=== PATIENT | male | born 1955 | race Caucasian/White ===

== ENCOUNTER 2017-06-10 21:39 | Emergency (ER) | payer BC ==
[2017-06-10] MEDS ORDERED: Sodium Chloride 0.9% 1,000 ML IV ONE (21:49)
[2017-06-10] MEDS ORDERED: Ondansetron 4 MG/2 ML SDV IVPUSH ONE (21:50)
--- NOTE | 2017-06-10 21:58 | EDM.PDOC ---
ED HPI GENERAL MEDICAL PROBLEM - General Chief Complaint: Abdominal Pain Stated Complaint: PT WEAK Time Seen by Provider: 06/10/17 21:57 Source of Information: Reports: Patient - History of Present Illness INITIAL COMMENTS - FREE TEXT/NARRATIVE: HISTORY AND PHYSICAL: History of present illness: [Patient presents with mild nonfocal abdominal pain over the last week he is noted to have loose stools over the last several months he is in no acute distress no fever vomiting chills sweats no chest pain shortness breath headache dizziness or palpitation no urine symptoms he's had several loose stools today Last colonoscopy was 20 years prior with negative findings at that time he denies blood or mucus in his stool ] Review of systems: As per history of present illness and below otherwise all systems reviewed and negative. Past medical history: As per history of present illness and as reviewed below otherwise noncontributory. Surgical history: As per history of present illness and as reviewed below otherwise noncontributory. Social history: No reported history of drug or alcohol abuse. Family history: As per history of present illness and as reviewed below otherwise noncontributory. Physical exam: HEENT: Atraumatic, normocephalic, pupils reactive, negative for conjunctival pallor or scleral icterus, mucous membranes moist, throat clear, neck supple, nontender, trachea midline. Lungs: Clear to auscultation, breath sounds equal bilaterally, chest nontender. Heart: S1S2, regular, negative for clicks, rubs, or JVD. Abdomen: Soft, nondistended, nontender. Negative for masses or hepatosplenomegaly. Negative for costovertebral tenderness. Pelvis: Stable nontender. Genitourinary: Deferred. Rectal: Deferred. Extremities: Atraumatic, negative for cords or calf pain. Neurovascular unremarkable. Neuro: Awake, alert, oriented. Cranial nerves II through XII unremarkable. Cerebellum unremarkable. Motor and sensory unremarkable throughout. Exam nonfocal. Diagnostics: [TBC CMP lipase troponin UA Abdomen flat and upright Chest 1 view EKG ] Therapeutics: [ saline bolus Zofran 8 mg IV ] Patient was formerly followed by Dr. singer who is now not with this any longer ordered for the patient over to general surgery for consideration of colonoscopy Impression: [ abdominal pain ] Definitive disposition and diagnosis as appropriate pending reevaluation and review of above. Abdomen Pain Score (Numeric/FACES): 4 - Related Data Allergies Allergy/AdvReac Type Severity Reaction Status Date / Time iodine Allergy Rash Verified 06/10/17 21:53 seafoods Allergy Rash Uncoded 06/10/17 21:53 Home Meds: Home Meds Hydrochlorothiazide/Lisinopril [Lisinopril-HCTZ 20-25 MG] 25 mg PO DAILY [History] Past Medical History Other Musculoskeletal History: right wrist fracture (1970) and left foot fracture (2012) Social & Family History - Tobacco Use Smoking Status *Q: Never Smoker Years of Tobacco use: 20 Used Tobacco, but Quit: Yes Second Hand Smoke Exposure: Yes - Alcohol Use Days Per Week of Alcohol Use: 3 Number of Drinks Per Day: 1 Total Drinks Per Week: 3 - Recreational Drug Use Recreational Drug Use: No Drug Use in Last 12 Months: No ED ROS GENERAL - Review of Systems Review Of Systems: ROS reveals no pertinent complaints other than HPI. ED EXAM, GENERAL - Physical Exam Exam: See Below Course - Vital Signs Last Recorded V/S: Last Vital Signs Temp 98 F 06/10/17 21:55 Pulse 68 06/10/17 21:55 Resp 18 06/10/17 21:55 BP 154/91 H 06/10/17 21:55 Pulse Ox 98 06/10/17 21:55 - Orders/Labs/Meds Orders: Active Orders 24 hr Category Date Time Status EKG Documentation Completion [RC] STAT Care 06/10/17 21:49 Active Abdomen 2V AP Flat Upright [CR] Stat Exams 06/10/17 22:50 Taken Chest 1V Frontal [CR] Stat Exams 06/10/17 21:49 Taken INFLUENZA A+B AG SCREEN [RM] Stat Lab 06/10/17 22:00 Ordered UA W/MICROSCOPIC [URIN] Stat Lab 06/10/17 22:57 Ordered Labs: Laboratory Tests 06/10/17 06/10/17 06/10/17 Range/Units 22:10 22:10 22:57 WBC 8.31 (4.0-11.0) K/uL RBC 5.03 (4.50-5.90) M/uL Hgb 15.1 (13.0-17.0) g/dL Hct 43.6 (38.0-50.0) % MCV 86.7 (80.0-98.0) fL MCH 30.0 (27.0-32.0) pg MCHC 34.6 (31.0-37.0) g/dL RDW Std Deviation 42.7 (28.0-62.0) fl RDW Coeff of Mignon 14 (11.0-15.0) % Plt Count 306 (150-400) K/uL MPV 9.10 (7.40-12.00) fL Neut % (Auto) 59.1 (48.0-80.0) % Lymph % (Auto) 31.4 (16.0-40.0) % [place] % (Auto) 6.7 (0.0-15.0) % Eos % (Auto) 2.4 (0.0-7.0) % Baso % (Auto) 0.4 (0.0-1.5) % Neut # (Auto) 4.9 (1.4-5.7) K/uL Lymph # (Auto) 2.6 H (0.6-2.4) K/uL [place] # (Auto) 0.6 (0.0-0.8) K/uL Eos # (Auto) 0.2 (0.0-0.7) K/uL Baso # (Auto) 0.0 (0.0-0.1) K/uL Nucleated RBC % 0.0 /100WBC Nucleated RBCs # 0 K/uL Sodium 138 (136-148) mmol/L Potassium 3.4 L (3.5-5.1) mmol/L Chloride 105 (98-107) mmol/L Carbon Dioxide 24.4 (21.0-32.0) mmol/L BUN 21 H (7.0-18.0) mg/dL Creatinine 0.8 (0.8-1.3) mg/dL Est Cr Clr Drug Dosing 90.25 mL/min Estimated GFR (MDRD) > 60.0 ml/min Glucose 120 H (74-106) mg/dL Calcium 8.8 (8.5-10.1) mg/dL Total Bilirubin 0.3 (0.2-1.0) mg/dL AST 17 (15-37) IU/L ALT 27 (14-63) IU/L Alkaline Phosphatase 67 (46-116) U/L Troponin I < 0.050 (0.000-0.056) ng/mL Total Protein 7.1 (6.4-8.2) g/dL Albumin 3.9 (3.4-5.0) g/dL Globulin 3.2 (2.0-3.5) g/dL Albumin/Globulin Ratio 1.2 L (1.3-2.8) Lipase 142 (73-393) U/L Urine Color YELLOW Urine Appearance CLEAR Urine pH 6.5 (5.0-8.0) Ur Specific [place] 1.020 (1.001-1.035) Urine Protein NEGATIVE (NEGATIVE) mg/dL Urine Glucose (UA) NEGATIVE (NEGATIVE) mg/dL Urine Ketones NEGATIVE (NEGATIVE) mg/dL Urine Occult Blood TRACE-INTACT (NEGATIVE) Urine Nitrite NEGATIVE (NEGATIVE) Urine Bilirubin NEGATIVE (NEGATIVE) Urine Urobilinogen 0.2 (<2.0) EU/dL Ur Leukocyte Esterase NEGATIVE (NEGATIVE) Urine RBC 0-1 (0-2/HPF) Urine WBC 0-2 (0-5/HPF) Ur Epithelial Cells RARE (NONE-FEW) Urine Bacteria FEW (NEGATIVE) Meds: Medications Discontinued Medications Generic Name Dose Route Start Last Admin Trade Name Osei PRN Reason Stop Dose Admin Sodium Chloride 1,000 mls @ 999 mls/hr 06/10/17 21:49 06/10/17 22:26 Normal Saline IV 06/10/17 22:49 999 mls/hr STAT ONE Administration Ondansetron HCl 8 mg 06/10/17 21:50 06/10/17 22:26 Zofran IVPUSH 06/10/17 21:51 8 mg ONETIME ONE Administration Departure - Departure Time of Disposition: 00:21 Disposition: Home, Self-Care 01 Condition: Good Clinical Impression: Abdominal pain - Discharge Information Referrals: PCP,None [Primary Care Provider] - Forms: ED Department Discharge Additional Instructions: Continue daily medications as directed Return if symptoms persist or worsen or new concerning symptoms develop ER referral to general surgery for consideration of colonoscopy [facility] - General Surgery [address], [address] [place] [address] The following information is given to patients seen in the emergency department who are being discharged to home. This information is to outline your options for follow-up care. We provide all patients seen in our emergency department with a follow-up referral. The need for follow-up, as well as the timing and circumstances, are variable depending upon the specifics of your emergency department visit. If you don't have a primary care physician on staff, we will provide you with a referral. We always advise you to contact your personal physician following an emergency department visit to inform them of the circumstance of the visit and for follow-up with them and/or the need for any referrals to a consulting specialist. The emergency department will also refer you to a specialist when appropriate. This referral assures that you have the opportunity for follow-up care with a specialist. All of these measure are taken in an effort to provide you with optimal care, which includes your follow-up. Under all circumstances we always encourage you to contact your private physician who remains a resource for coordinating your care. When calling for follow-up care, please make the office aware that this follow-up is from your recent emergency room visit. If for any reason you are refused follow-up, please contact the [facility] emergency department at and asked to speak to the emergency department charge nurse. - My Orders Last 24 Hours: My Active Orders 06/10/17 21:49 EKG Documentation Completion [RC] STAT Chest 1V Frontal [CR] Stat 06/10/17 22:00 INFLUENZA A+B AG SCREEN [RM] Stat 06/10/17 22:50 Abdomen 2V AP Flat Upright [CR] Stat 06/10/17 22:57 UA W/MICROSCOPIC [URIN] Stat - Assessment/Plan Last 24 Hours: My Active Orders 06/10/17 21:49 EKG Documentation Completion [RC] STAT Chest 1V Frontal [CR] Stat 06/10/17 22:00 INFLUENZA A+B AG SCREEN [RM] Stat 06/10/17 22:50 Abdomen 2V AP Flat Upright [CR] Stat 06/10/17 22:57 UA W/MICROSCOPIC [URIN] Stat
[2017-06-10 22:46] LABS: CHLORIDE,CL 105 mmol/L (98-107); SODIUM,NA 138 mmol/L (136-148)
[2017-06-11 00:46] VITALS: BP 150/80
--- NOTE | 2017-06-12 13:44 | CR ---
EXAM DATE: 06/10/17 PATIENT'S AGE: 62 Patient: CRISTINA FULLER Facility: [place], [place] Site . Site : 1955 Study: XRay Abdomen [id number]/21/2018 11:31:51 PM Ordering Physician: Georgette Gray Final Report: INDICATION: Abdominal pain TECHNIQUE: Abdomen 2 view. COMPARISON: None FINDINGS: Bowel: Bowel pattern is normal. Colonic fecal retention involving the ascending and transverse colon. Soft tissues: No sign of free air. No sign of soft tissue mass. No suspicious calcifications. Bones: Scoliosis, IMPRESSION: Colonic fecal retention involving the ascending and transverse colon. Dictated by Rock John MD @ 06/10/2017 11:54:36 PM Dictated by: Rock John MD @ 06/10/2017 23:54:43 (Electronic Signature) Report Signed by Proxy. [facility]
--- NOTE | 2017-06-12 14:11 | CR ---
EXAM DATE: 06/10/17 PATIENT'S AGE: 62 Patient: CRISTINA FULLER Facility: [place], [place] Site . Site : 1955 Study: XRay Chest [id number]/21/2018 10:27:42 PM Ordering Physician: Doctor Arriaga Final Report: INDICATION: Chest pain COMPARISON: none TECHNIQUE: Portable AP erect chest performed at 10:14 p.m. FINDINGS: The lungs are clear. There is no evidence of pneumothorax. The heart, mediastinum and pulmonary vessels are of normal size. There is no evidence of pleural fluid. IMPRESSION: Negative chest. Dictated by Fam Morales MD @ Jun 12 2017 1:51PM (Electronic Signature) Report Signed by Proxy. JUS
== END 2017-06-11 00:40 | disposition home or self-care (01) ==
LOC: MW.ED 21:39
DX: R10.9 Unspecified abdominal pain (principal); R19.7 Diarrhea, unspecified; Z91.048 Other nonmedicinal substance allergy status; Z91.013 Allergy to seafood
CPT/HCPCS: 71045; 74019; 80053; 81001; 83690; 84484; 85025; 87804; 93005; 96361; 96374; 99285; J2405; J7040; 99283

== ENCOUNTER 2017-06-15 07:45 | Day surgery (SDC) | payer BC ==
[~2017-06-15 07:45] MED LIST: Lactated Ringers 1,000 ML IV SCH; Sodium Chloride 0.9% 10 ML Syringe FLUSH PRN; Sodium Chloride 0.9% 2.5 ML Syringe FLUSH PRN
[2017-06-15] MEDS ORDERED: Lidocaine 2% 5 ML SDV ONE (09:38)
[2017-06-15] MEDS ORDERED: Propofol 200 MG/20 ML SDV ONE (09:39)
--- NOTE | 2017-06-15 10:19 | PCM.PREANE ---
Preanesthetic Assessment - Anesthesia/Transfusion/Family Hx Anesthesia History: Prior Anesthesia Without Reaction Other Type of Anesthesia Reaction Comment: DENIES ANY PROBLEMS WITH ANESTHESIA Family History of Anesthesia Reaction: No Transfusion History: No Prior Transfusion(s) - Review of Systems General: No Symptoms Pulmonary: No Symptoms Cardiovascular: No Symptoms Neurological: No Symptoms Other: Reports: None - Physical Assessment NPO Status Date: 06/14/17 O2 Sat by Pulse Oximetry: 97 Respiratory Rate: 16 Vital Signs: Last Vital Signs Temp 36.4 C 06/15/17 08:49 Pulse 87 06/15/17 08:49 Resp 16 06/15/17 08:49 BP 136/92 H 06/15/17 08:49 Pulse Ox 97 06/15/17 08:49 Height: 1.73 m Weight: 74.389 kg ASA Class: 2 Mental Status: Alert & Oriented x3 Airway Class: Mallampati = 2 Dentition: Reports: Normal Dentition ROM/Head Extension: Full Lungs: Clear to Auscultation, Normal Respiratory Effort Cardiovascular: Regular Rate, Regular Rhythm - Allergies Allergies/Adverse Reactions: Allergies Allergy/AdvReac Type Severity Reaction Status Date / Time iodine Allergy Rash Verified 06/10/17 21:53 seafoods Allergy Rash Uncoded 06/10/17 21:53 - Anesthesia Plan Pre-Op Medication Ordered: None - Acknowledgements Anesthesia Type Planned: MAC Pt an Appropriate Candidate for the Planned Anesthesia: Yes Alternatives and Risks of Anesthesia Discussed w Pt/Guardian: Yes Pt/Guardian Understands and Agrees with Anesthesia Plan: Yes Additional Comments: PMH: htn, gerd PreAnesthesia Questionnaire HEENT History: Reports: None Other HEENT History: wears glasses Cardiovascular History: Reports: Hypertension Respiratory History: Reports: None Gastrointestinal History: Reports: Chronic Diarrhea, GERD Genitourinary History: Reports: BPH Musculoskeletal History: Reports: Back Pain, Chronic, Fracture, Neck Pain, Chronic Other Musculoskeletal History: hx of fx wrist and foot(no hardware) Neurological History: Reports: None Psychiatric History: Reports: Anxiety, Depression Endocrine/Metabolic History: Reports: None Hematologic History: Reports: None Immunologic History: Reports: None Oncologic (Cancer) History: Reports: None Dermatologic History: Reports: None - Infectious Disease History Infectious Disease History: Reports: Chicken Pox - Past Surgical History HEENT Surgical History: Reports: Adenoidectomy, Tonsillectomy GI Surgical History: Reports: Appendectomy Male Surgical History: Reports: Vasectomy Musculoskeletal Surgical History: Reports: Carpal Tunnel - SUBSTANCE USE Smoking Status *Q: Former Smoker Tobacco Use Within Last Twelve Months: No Second Hand Smoke Exposure: Yes Days Per Week of Alcohol Use: 3 Number of Drinks Per Day: 1 Total Drinks Per Week: 3 Recreational Drug Use History: No - HOME MEDS Home Medications: Home Meds Lisinopril/Hydrochlorothiazide [Lisinopril-Hctz 20-25 mg Tab] 1 tab PO QAM 06/14 [History] - CURRENT (IN HOUSE) MEDS Current Meds: Current Medications Lactated Ringer's (Ringers, Lactated) 1,000 mls @ 125 mls/hr IV ASDIRECTED CECILIA Last Admin: 06/15/17 08:05 Dose: 125 mls/hr Sodium Chloride (Saline Flush) 10 ml FLUSH ASDIRECTED PRN PRN Reason: Keep Vein Open Sodium Chloride (Saline Flush) 2.5 ml FLUSH ASDIRECTED PRN PRN Reason: Keep Vein Open Sodium Chloride (Saline Flush) 10 ml FLUSH ASDIRECTED PRN PRN Reason: Keep Vein Open Sodium Chloride (Saline Flush) 2.5 ml FLUSH ASDIRECTED PRN PRN Reason: Keep Vein Open Discontinued Medications Lidocaine (Xylocaine-Mpf 2%) Confirm Administered Dose 5 ml .ROUTE .STK-MED ONE Stop: 06/15/17 09:39 Propofol (Diprivan 20 Ml) Confirm Administered Dose 400 mg .ROUTE .STK-MED ONE Stop: 06/15/17 09:40
[2017-06-15] MEDS ORDERED: fentaNYL 100 MCG/2 ML SDV ONE (11:45)
[2017-06-15] MEDS ORDERED: Midazolam 1 MG/ML 2 ML SDV ONE (11:45)
[2017-06-15] MEDS ORDERED: Glycopyrrolate 0.2 MG/ML SDV ONE (12:10)
--- NOTE | 2017-06-15 12:47 | PCM.OPNOTE ---
- General Post-Op/Procedure Note Date of Surgery/Procedure: 06/15/17 Operative Procedure(s): Diagnostic EGD and colonoscopy Findings: Moderate sized hiatal hernia with associated esophagitis. Mild gastritis. Duodenitis. Grade 2 internal hemorrhoids Pre Op Diagnosis: Abdominal pain Post-Op Diagnosis: Moderate sized hiatal hernia with associated esophagitis. Mild gastritis. Duodenitis. Grade 2 internal hemorrhoids Anesthesia Technique: [facility] Primary Surgeon: Tosin Mccracken Condition: Good
--- NOTE | 2017-06-15 13:50 | PCM.POSTAN ---
POST ANESTHESIA ASSESSMENT - MENTAL STATUS Mental Status: Alert, Oriented - RESPIRATORY Respiratory Status: Respiratory Rate WNL, Airway Patent, O2 Saturation Stable - CARDIOVASCULAR CV Status: Pulse Rate WNL, Blood Pressure Stable - GASTROINTESTINAL GI Status: No Symptoms - POST OP HYDRATION Hydration Status: Adequate & Stable
--- NOTE | 2017-06-15 13:50 | PCM48HPAN ---
Post Anesthesia Note - EVALUATION WITHIN 48HRS OF ANESTHETIC Vital Signs in Normal Range: Yes Patient Participated in Evaluation: Yes Respiratory Function Stable: Yes Airway Patent: Yes Cardiovascular Function Stable: Yes Hydration Status Stable: Yes Pain Control Satisfactory: Yes Nausea and Vomiting Control Satisfactory: Yes Mental Status Recovered: Yes Resp Rate: 15
[2017-06-15 13:52] VITALS: BP 136/81
--- NOTE | 2017-06-15 15:05 | OR ---
SURGEON: TOSIN MCCRACKEN MD DATE OF PROCEDURE: 06/15/2017 PREOPERATIVE DIAGNOSIS: Abdominal pain. POSTOPERATIVE DIAGNOSES: 1. Esophagitis. 2. Gastritis. 3. Duodenitis. 4. Moderate-sized hiatal hernia. 5. Grade 2 internal hemorrhoids. PROCEDURE PERFORMED: Diagnostic EGD and colonoscopy. ENDOSCOPIST: Tosin Mccracken MD. ANESTHESIA: MAC. INSTRUMENT USED: Olympus endoscope and colonoscope. EXTENT OF EXAM: To the second portion of duodenum, to the cecum. PREPARATION: Good. LIMITATIONS: None. INDICATION FOR EXAMINATION: The patient is a 62-year-old male, who presented to the emergency room this weekend with generalized abdominal pain. The patient and I reviewed his previous labs and his symptoms. The decision was made to perform a diagnostic EGD and colonoscopy. The patient and I discussed the procedure, expected perioperative course, and risks including bleeding, infection, or damage to surrounding structures including perforation. The patient verbalized understanding and wishes to proceed. PROCEDURE IN DETAIL: The patient was brought in to the OR and positioned in the OR cart in the left lateral decubitus position. A time-out was completed verifying the patient's name, age, date of , allergies, and procedure to be performed. A bite block was placed in the patient's mouth and monitored anesthesia care induced. Continuous oxygen was provided via nasal cannula throughout the procedure. After adequate sedation was achieved, a well lubricated endoscope was placed in the patient's mouth and advanced under direct visualization to the second portion of duodenum. This area appeared normal and a photograph was taken. The scope was then fully withdrawn while examining the color, texture, anatomy, and integrity of the mucosa of the upper GI tract. The patient was noted to have some inflammation within the duodenal bulb. Several photographs of this inflammation were taken and a biopsy was taken using a cold biopsy forceps. This biopsy was taken in the area of the maximum amount of inflammation. The scope was then brought into the stomach and a photograph taken of the pylorus, as well as the GE junction. The patient was noted to have a moderate-sized hiatal hernia. The gastric mucosa appeared mildly inflamed along the antrum. Biopsies were taken of the gastric antrum, body, and fundus and sent for H. pylori testing. The scope was then brought into the distal esophagus. The patient was noted to have inflammation along the distal esophagus. The distal esophagus appeared to start at about 40 cm at the teeth. Two biopsies were taken along the esophageal mucosa in the area of maximal inflammation. The biopsy sites were monitored closely and hemostasis was achieved. The remainder of the esophageal mucosa appeared normal. The scope was removed and this portion of procedure terminated. Digital rectal exam was then performed. This exam was within normal limits. A well lubricated colonoscope was inserted in the rectum and advanced under direct visualization to the level of cecum. The cecum was identified by both visual and anatomic landmarks. Photograph taken of cecal cap, as well as the scope retroflexed within the cecum. The scope was then fully withdrawn while examining the color, texture, anatomy, and integrity of the mucosa from the cecum to the anal canal. The findings were consistent with normal colonic mucosa. The scope was brought into the rectum and retroflexed to allow visualization of the anal canal opening. The patient was noted to have grade 2 internal hemorrhoids. The scope was then straightened out and fully withdrawn. The cecum to anus time was 7 minutes. The patient tolerated the procedure well was transferred to the PACU in stable condition. ENDOSCOPIC DIAGNOSES: 1. Esophagitis. 2. Gastritis. 3. Duodenitis. 4. Moderate-sized hiatal hernia. 5. Grade 2 internal hemorrhoids. RECOMMENDATIONS: We will start the patient on omeprazole and sucralfate. We will follow up in clinic to review biopsies in 2 weeks. SEBAS MTZ /[id number] MTDD
== END 2017-06-15 13:20 | disposition home or self-care (01) ==
LOC: MW.SDS 07:45
PROVIDERS: ATTEND Surgery
DX: K29.50 Unspecified chronic gastritis without bleeding (principal); K29.80 Duodenitis without bleeding; K20.9 Esophagitis, unspecified; K22.70 Barrett's esophagus without dysplasia; K44.9 Diaphragmatic hernia without obstruction or gangrene; K64.1 Second degree hemorrhoids; G56.02 Carpal tunnel syndrome, left upper limb; J32.9 Chronic sinusitis, unspecified; K21.9 Gastro-esophageal reflux disease without esophagitis; I10 Essential (primary) hypertension; M75.41 Impingement syndrome of right shoulder; M17.11 Unilateral primary osteoarthritis, right knee; J21.0 Acute bronchiolitis due to respiratory syncytial virus; R19.4 Change in bowel habit; Z91.041 Radiographic dye allergy status; Z90.49 Acquired absence of other specified parts of digestive tract; Z90.89 Acquired absence of other organs; Z98.52 Vasectomy status; Z98.890 Other specified postprocedural states
CPT/HCPCS: 43239; 45378; J2250; J3010; J7120; 00813; 88305; 88312; J2704